=== PATIENT | male | born 1945 | race Caucasian/White ===

== ENCOUNTER 2018-04-23 05:10 | Observation (INO) | payer OTHER ==
--- NOTE | 2018-04-23 05:29 | ED ---
HPI Chest Pain - HPI Summary HPI Summary: This pt is a 72 y/o male presenting to [facility] c/o chest pain. Pt reports for the past 2 days he has had intermittent chest pain on the left side of his chest. He describes a shooting and stabbing pain that lasts for about 3-4 seconds and resolves on its own; this occurs every 30 minutes. Additionally states tightness in his chest intermittently. Pt reports his chest pain radiates to both side of his neck and with deep breathing he has neck pain on the left. Denies radiating pain anywhere else. Denies nausea, vomiting, diaphoresis. His last chemical stress test was 5 or 6 years ago. PMHx includes HTN, afib. Pt is on atenolol, losartan, hydrochlorothiazide, aspirin. Pt is not on anticoagulants. He has been taking his aspirin as directed. The last time he had a syncopal episode with LOC was 3 years ago. Denies syncopal episodes lately. Pt drinks alcohol every day. - History of Current Complaint Chief Complaint: EDChestPainROMI Time Seen by Provider: 04/23/18 05:19 Hx Obtained From: Patient, Family/Forest [employer] Specialist Supervisor Onset/Duration: Started Days Ago - 2, Still Present Timing: Intermittent, Lasting Seconds - 3-4 seconds Initial Severity: Moderate Current Severity: Mild Pain Intensity: 0 Pain Scale Used: 0-10 Numeric Chest Pain Location: Left Anterior Chest Pain Radiates: Yes Chest Pain Radiates To:: Neck - bilateral sides of neck Character: Sharp/Stabbing, Tightness Aggravating Factor(s): Nothing Alleviating Factor(s): Nothing Associated Signs and Symptoms: Positive: Chest Pain. Negative: Shortness of Breath, Fever, Chills, Diaphoresis, Nausea, Vomiting - Allergy/Home Medications Allergies/Adverse Reactions: Allergies Allergy/AdvReac Type Severity Reaction Status Date / Time No Known Allergies Allergy Verified 08/13/14 18:16 Home Medications: Home Medications Aspirin 81 mg CHEW TAB* [Aspirin Low Dose TAB*] 81 mg PO DAILY 04/23/18 [ History Confirmed 04/23/18] Losartan Potassium 25 mg PO DAILY 04/23/18 [History Confirmed 04/23/18] hydroCHLOROthiazide [Hydrochlorothiazide] 12.5 mg PO DAILY 04/23/18 [History Confirmed 04/23/18] PMH/Surg Hx/FS Hx/Imm Hx Endocrine/Hematology History: Denies: Hx Diabetes Cardiovascular History: Reports: Hx Angina, Hx Atrial Fibrillation, Hx Hypertension Denies: Hx Congestive Heart Failure GI History: Reports: Hx Gastroesophageal Reflux Disease Musculoskeletal History: Reports: Hx Back Problems - surgery 25 years ago - Surgical History Surgery Procedure, Year, and Place: back surgery 25 years ago Infectious Disease History: No Infectious Disease History: Denies: Traveled Outside the [place] in Last 30 Days - Family History Known Family History: Positive: Cardiac Disease - Father Family History: Father and mother with colon CA. Mother with cerebral hemorrhage. - Social History Alcohol Use: Daily Alcohol Amount: 3-7/day Substance Use Type: Reports: Marijuana Substance Use Comment - Amount & Last Used: Rarely Smoking Status (MU): Never Smoked Tobacco Review of Systems Negative: Fever, Chills, Skin Diaphoresis Positive: Chest Pain Negative: Shortness Of Breath Negative: Vomiting, Nausea Musculoskeletal: Other - neck pain All Other Systems Reviewed And Are Negative: Yes Physical Exam - Summary Physical Exam Summary: VITAL SIGNS: Reviewed. GENERAL: Patient is a well-developed and nourished male who is lying comfortable in the stretcher. Patient is not in any acute respiratory distress. HEAD AND FACE: No signs of trauma. No ecchymosis, hematomas or skull depressions. No sinus tenderness. EYES: PERRLA, EOMI x 2, No injected conjunctiva, no nystagmus. EARS: Hearing grossly intact. Ear canals and tympanic membranes are within normal limits. MOUTH: Oropharynx within normal limits. NECK: Supple, trachea is midline, no adenopathy, no JVD, no carotid bruit, no c- spine tenderness, neck with full ROM. CHEST: Symmetric, no tenderness at palpation LUNGS: Clear to auscultation bilaterally. No wheezing or crackles. CVS: Irregular bradycardic, S1 and S2 present, no murmurs or gallops appreciated. ABDOMEN: Soft, non-tender. No signs of distention. No rebound no guarding, and no masses palpated. Bowel sounds are normal. EXTREMITIES: FROM in all major joints, no edema, no cyanosis or clubbing. NEURO: Alert and oriented x 3. No acute neurological deficits. Speech is normal and follows commands. SKIN: Dry and warm Triage Information Reviewed: Yes Vital Signs On Initial Exam: Initial Vitals Temp Pulse Resp BP Pulse Ox 98.3 F 54 20 190/90 95 04/23/18 05:15 04/23/18 05:15 04/23/18 05:15 04/23/18 05:15 04/23/18 05:15 Vital Signs Reviewed: Yes Diagnostics - Vital Signs Vital Signs Temp Pulse Resp BP Pulse Ox 04/23/18 05:15 98.3 F 54 20 190/90 95 - Laboratory Result Diagrams: 04/23/18 06:06 04/23/18 06:06 Lab Statement: Any lab studies that have been ordered have been reviewed, and results considered in the medical decision making process. - Radiology Chest XR Xray Interpretation: Positive (See Comments) - cardiomegaly. Bilateral mild venous congestion. Pending official radiology report. Radiology Interpretation Completed By: ED Physician - EKG 05:13 Cardiac Rate: Bradycardia - at 57 bpm EKG Rhythm: Atrial Fibrillation EKG Interpretation: Minimal ST depression in lateral leads. Nonspecific T wave changes. EKG Comparison: No Significant Change - from prior EKG on 08/13/14. Chest Pain Course/Dx - Course Assessment/Plan: Pt is a 72 y/o male, with hx of HTN and afib not on anticoagulants, presents with chest pain. Pt reports for the past 2 days he has had intermittent chest pain on the left side of his chest. He describes a shooting and stabbing pain that lasts for about 3-4 seconds and resolves on its own; this occurs every 30 minutes. Additionally states tightness in his chest intermittently. Pt reports his chest pain radiates to both side of his neck and with deep breathing he has neck pain on the left. Denies radiating pain anywhere else. Denies nausea, vomiting, diaphoresis. In the ED course the pt was given aspirin and nitroglycerin paste. EKG shows atrial fibrillation at 57 bpm. Test results shows WBC of 11, INR of 1.14, total bilirubin of 2.7, BNP of 233. Pt has pauses of 2 seconds on monitor. He is asymptomatic during these pauses. Chest XR is consistent with mild congestive heart failure and pt will be given 20 mg of Lasix. I discussed the case with Dr. Head, hospitalist, who accepted the pt for admission. - Diagnoses Provider Diagnoses: Chest pain, Atrial fibrillation, Congestive heart failure - Provider Notifications Discussed Care Of Patient With: Abdoulaye Head - hospitalist Time Discussed With Above Provider: 06:48 Instructed by Provider To: Admit As Inpatient Discharge - Sign-Out/Discharge Documenting (check all that apply): Patient Departure - Admit to [facility] - Discharge Plan Condition: Stable Disposition: ADMITTED TO [facility] Referrals: Andrae Gaviria MD [Primary Care Provider] - - Attestation Statements Document Initiated by Scribe: Yes Documenting Scribe: Alexandra Dumont Provider For Whom Scribe is Documenting (Include Credential): Rupal Maldonado MD Scribe Attestation: Alexandra Eden, scribed for Rupal Maldonado MD on 04/23/18 at 0652.
[2018-04-23] MEDS ORDERED: Nitroglycerin 2% OINT* 1 GM PAK TOPICAL ONE (05:35)
[2018-04-23] MEDS ORDERED: Aspirin 81 mg CHEW TAB* 81 MG TAB.CHEW PO ONE (05:36)
[2018-04-23 06:21] LABS: ABS Basophils 0.1 10^3/ul (0-0.2); ABS Eosinophils 0 10^3/ul (0-0.6); ABS Lymphocytes 1.3 10^3/ul (1.0-4.8); ABS Monocytes 1.3 10^3/ul (0-0.8); ABS Neutrophils 8.4 10^3/ul (1.5-7.7); ABS Nucleated RBC 0 10^3/ul; Eosinophil % 0.2 % (0-6); Hematocrit 45 % (42-52); Hemoglobin 15.7 g/dl (14.0-18.0); Lymphocyte % 11.5 % (25-47); Mean Corpuscular HGB Conc 35 g/dl (31-36); Mean Corpuscular Hemoglobin 35 pg (27-31); Mean Corpuscular Volume 100 fL (80-94); Mean Platelet Volume 8.1 um3 (7.4-10.4); Nucleated Red Blood Cells % 0.1; Platelet Count 169 10^3/ul (150-450); Red Blood Count 4.49 10^6/ul (4.00-5.40); Red Cell Distribution Width 13 % (10.5-15)
[2018-04-23 06:28] LABS: INR 1.14 (0.77-1.02)
[2018-04-23 06:40] LABS: EGFR Non-African American 100.8 (>60)
[2018-04-23] MEDS ORDERED: Furosemide IV* 10 MG/ML 2 ML VIAL (20 MG) IV ONE (06:46)
--- NOTE | 2018-04-23 07:49 | RAD ---
INDICATION: Chest pain COMPARISON: Chest x-ray August 13, 2014 TECHNIQUE: Single AP portable view of the chest was obtained. FINDINGS: Image quality is compromised due to the relative inferiority of a portable chest x-ray. There is a mild degree of cardiomegaly. The heart and mediastinum otherwise exhibits normal contours. There is mild engorgement of the pulmonary vasculature. The lungs are otherwise grossly clear. Visualized bones are normal for the patient's age. IMPRESSION: In the correct clinical setting chest x-ray findings could be compatible with cardiogenic pulmonary edema. R0
[2018-04-23] MEDS ORDERED: Enoxaparin(*) 40 MG/0.4 ML SYR SUBCUT SCH (08:00)
[2018-04-23] MEDS ORDERED: Potassium Chlor TAB* 10 MEQ TAB.ER PO ONE (08:00)
--- NOTE | 2018-04-23 08:00 | ADMNOTE ---
Subjective Date of Service: 04/23/18 Interval History: ADMISSION HISTORY AND PHYSICAL EXAM: Allergies Allergy/AdvReac Type Severity Reaction Status Date / Time No Known Allergies Allergy Verified 08/13/14 18:16 Home Medications Medication Instructions Recorded Confirmed Type Atenolol [Atenolol-] 25 mg PO DAILY 08/13/14 04/23/18 History Aspirin 81 mg CHEW TAB* [Aspirin 81 mg PO DAILY 04/23/18 04/23/18 History Low Dose TAB*] Losartan Potassium 25 mg PO DAILY 04/23/18 04/23/18 History hydroCHLOROthiazide 12.5 mg PO DAILY 04/23/18 04/23/18 History [Hydrochlorothiazide] HPI According to his , the patient has had intermittent L chest pain for several years. He sometimes grabs his L chest and says "This is the big one." The pains seemed more severe the last 2 days. It woke him at about 4 AM. today. It lasted several hours, off and on, and is still present to a lesser degree. No assoc sx's or radiation. Mldly pleuritic. He states he takes a half of a hydrocodone for his back and also for this pain. Family History: Unchanged from Admission - Colon ca both parents. Cerebral hemorrhage, CAD Social History: Findings - Never smoked. Drank 4 alcoholic drinks yesterday. Lives with his who is his SDM. Past Medical History: Findings - Chronic a fib not on AC. Back surgery, chronic back pain. HTN. Review of Systems - Measurements Intake and Output: Intake and Output Last 24 Hours 04/21/18 04/22/18 04/23/18 04/24/18 06:59 06:59 06:59 06:59 Weight 200 lb 200 lb - Review of Systems Constitutional Symptoms: Negative: Weight Gain, Weight Loss, Weakness, Fatigue, Fever, Night Sweats, Unexplained Falls, Other Dermatology: Positive: Normal HEENT: Positive: Normal Eyes: Positive: Normal Thyroid: Positive: Normal Pulmonary: Positive: Normal Cardiology: Positive: Chest Pain Gastroenterology: Positive: Normal Musculoskeletal: Positive: Low Back Pain Endocrinology: Positive: Normal Hematologic/Lymphatic: Negative: Anemia, Easy Brusing, Hx Leukemia, Hx Lymphoma, Use of Anticoagulant, Use of Antiplatelet Drugs, Other Neurology: Positive: Other - numbnes of plantar feet BL Psychiatry: Positive: Normal Allergic/Immunologic: Negative: Hx Anaphylaxis, Hx Angioedema, Hx Environmental, Hx Seasonal, Athsma, Hx HIV, Immunocompromise, Swollen Glands LymphNodes, Other Objective Active Medications: Aspirin (Aspirin 81 Mg Chew Tab*) 81 mg PO DAILY LEONELA Enoxaparin Sodium (Lovenox(*)) 40 mg SUBCUT Q24H LEONELA Losartan Potassium (Cozaar Tab*) 25 mg PO DAILY LEONELA Non-Formulary Medication (Hydrochlorothiazide [Hydrochlorothiazide]) 12.5 mg PO DAILY LEONELA Potassium Chloride (Klor Con Er Tab*) 20 meq PO DAILY LEONELA Potassium Chloride (Klor Con Er Tab*) 20 meq PO ONCE ONE Stop: 04/23/18 08:01 Vital Signs - 8 hr 04/23/18 04/23/18 04/23/18 05:15 05:29 05:30 Temperature 98.3 F Pulse Rate 54 47 49 Respiratory 20 16 16 Rate Blood Pressure 190/90 174/91 (mmHg) O2 Sat by Pulse 95 96 97 Oximetry 04/23/18 04/23/18 04/23/18 05:59 06:01 06:18 Temperature Pulse Rate 49 Respiratory 17 19 19 Rate Blood Pressure 164/101 152/74 (mmHg) O2 Sat by Pulse 96 Oximetry 04/23/18 04/23/18 06:29 06:45 Temperature Pulse Rate 51 53 Respiratory 32 29 Rate Blood Pressure 150/85 159/86 (mmHg) O2 Sat by Pulse 96 94 Oximetry Oxygen Devices in Use Now: None Appearance: Alert, partly up on ED stretcher. In good spirits. Looks comfortable. Eyes: No Scleral Icterus Ears/Nose/Mouth/Throat: Clear Oropharnyx, Mucous Membranes Moist Neck: NL Appearance and Movements; NL JVP, No Thyroid Enlargement, Masses Respiratory: Symmetrical Chest Expansion and Respiratory Effort, Clear to Auscultation Cardiovascular: NL Sounds; No Murmurs; No JVD, No Edema, - - irreg. 2+ PT pulses BL. Abdominal: NL Sounds; No Tenderness; No Distention, No Hepatosplenomegaly, - Extremities: No Edema, No Clubbing, Cyanosis, - Skin: No Rash or Ulcers, No Nodules or Sclerosis, - Neurological: Alert and Oriented x 3, NL Sensation Result Diagrams: 04/23/18 06:06 04/23/18 06:06 Assess/Plan/Problems-Billing Assessment: - Patient Problems (1) Chest pain Current Visit: No Status: Acute Priority: High Onset Date: 08/13/14 Code (s): R07.9 - CHEST PAIN, UNSPECIFIED SNOMED Code(s): 85042671 Comment: Atypical. Last stess test 2014. Repeat today. Second troponin pending. (2) Elevated brain natriuretic peptide (BNP) level Current Visit: Yes Status: Acute Code(s): R79.89 - OTHER SPECIFIED ABNORMAL FINDINGS OF BLOOD CHEMISTRY SNOMED Code(s): 295881762 Comment: TTE ordered. Pt received 1 dose furosemide 20 mg IV in ED. Potassium ordered. (3) HTN (hypertension) Current Visit: No Status: Acute Priority: High Onset Date: 08/13/14 Code (s): I10 - ESSENTIAL (PRIMARY) HYPERTENSION SNOMED Code(s): 80108645 Comment: Stop atenolol due to bradycardia, continue losartan. (4) Alcohol abuse Current Visit: Yes Status: Acute Code(s): F10.10 - ALCOHOL ABUSE, UNCOMPLICATED SNOMED Code(s): 72206948 Comment: Pt advised to limit alcohol to 2 drinks per day.
[2018-04-23] MEDS ORDERED: Potassium Chlor TAB* 10 MEQ TAB.ER PO SCH (09:00)
[2018-04-23] MEDS ORDERED: Regadenoson* 0.4 MG/5 ML SYRINGE ONE (12:32)
[2018-04-23] MEDS ORDERED: Aminophylline IV* 25 MG/ML 10 ML VIAL ONE (13:30)
--- NOTE | 2018-04-23 14:51 | RAD ---
Edited for charges. Indication: Chest pain. Myocardial perfusion scan was performed utilizing 1 day protocol. Rest myocardial perfusion was performed without intravenous injection of 10.1 mCi of technetium 99 and tetrofosmin. Pharmacological stress was performed and 25.3 mCi of technetium 99m tetrofosmin was injected. Comparison is made with previous exam dated August 14, 2014. There is mild ventriculomegaly. There may be some mild photopenia at the base of the inferior wall which appears to reverse. No other areas of perfusion defect is identified. The ejection fraction at stress is 74%. Evaluation of wall motion demonstrates no focal wall motion abnormality. IMPRESSION: There may be some reversible change at the base of the heart in the inferior wall. Ventriculomegaly is noted. Normal ejection fraction. ASSESSMENT: Low risk Based on imaging criteria from ACC/AHA 2002 Guideline Update for the Management of Patients With Chronic Stable Angina Table 23. Noninvasive Risk Stratification. MTDD
[2018-04-23 15:27] VITALS: BP 158/63
[2018-04-24] MEDS ORDERED: Hydrochlorothiazide TAB* 25 MG PO SCH (09:00)
[2018-04-24] MEDS ORDERED: Aspirin 81 mg CHEW TAB* 81 MG TAB.CHEW PO SCH (09:00)
[2018-04-24] MEDS ORDERED: Losartan TAB* 25 MG PO SCH (09:00)
--- NOTE | 2018-04-24 10:31 | DS ---
CC: Dr. Gaviria DISCHARGE SUMMARY: DATE OF ADMISSION: 04/23/18 DATE OF DISCHARGE: 04/23/18 HISTORY: This 72-year-old man came complaining of chest pain. According to his and the patient , he has had the pain possibly for several years. The pain lasts 15 to 30 seconds. It occurs in dif ferent areas of his chest. It seemed a little more severe in the last 2 days. It woke him at about 4 a.m. It was present off and on for several hours. It was mildly pleuritic. He said he takes a cade lf of hydrocodone for his back pain and also took it for this pain. There were no other associated s ymptoms. He is a sedentary man because of his back pain. According to him and his , he has 4 to 5 alcoholic drinks per day. The patient was admitted to a telemetry unit. He had 2 troponin levels, both of which were within no rmal limits. He underwent a pharmacologic nuclear stress test. Ejection fraction at stress was 74%. There was no mention of attenuation correction being made. There was no focal wall motion abnormali ty. "There may be some mild photopenia at the base of the inferior wall which appears to reverse. N o other areas of perfusion defect is identified." A small questionable area at the base of the wall is more likely due to diaphragmatic attenuation and is probably not of clinical concern. An echocardiogram was ordered but the staff did not get around to doing it. I think the schedule was quite full for echocardiograms this day. He can have this as an outpatient. I think it may be wort h pursuing as his BNP was 233. The clinical significance of this at this time is not clear. I have told him to stop his atenolol. He already took it the morning of admission. In a day or two, he should be at a higher heart rate. The patient has an appointment to see Dr. Gaviria, 04/30/18, for a routine visit. I have told the christa crowley and his that they should talk to Dr. Gaviria about referral to a sampler and test preparer as well as an outpatient echocardiogram. I also told him that he should limit himself to 2 alcoholic drinks a day. FINAL DIAGNOSES: 1. Atypical chest pain. 2. Elevated BNP. 3. Hypertension. 4. Alcohol abuse. MEDICATIONS ON DISCHARGE: 1. Aspirin 81 mg daily. 2. Hydrochlorothiazide 12.5 mg daily. 3. Losartan 25 mg daily. Note that atenolol has been discontinued. CONDITION ON DISCHARGE: Good. DISPOSITION ON DISCHARGE: Home. [id number]/[facility] #: [id number]
== END 2018-04-23 16:21 | disposition home or self-care (01) ==
LOC: ED 05:10 → MEDTELE 07:47
PROVIDERS: ADMIT Internal Medicine; ATTEND Internal Medicine
DX: R07.89 Other chest pain (principal); I10 Essential (primary) hypertension; R79.89 Other specified abnormal findings of blood chemistry; F10.10 Alcohol abuse, uncomplicated; Z79.82 Long term (current) use of aspirin; I48.91 Unspecified atrial fibrillation; M54.5 Low back pain
CPT/HCPCS: 36415; 71045; 78452; 80053; 80320; 83735; 83880; 84484; 85025; 85379; 85610; 85730; 93005; 93017; 96374; 96375; 99284; A9270-GY; A9502; G0378; G0480; J0280; J1650; J1940; J2785

== ENCOUNTER 2018-05-02 12:38 | Emergency (ER) | payer OTHER ==
[2018-05-02 13:02] VITALS: BP 149/90
--- NOTE | 2018-05-02 13:15 | UC ---
Cardiac HPI - HPI Summary HPI Summary: 73yo male patient with PMH of Afib, HTN and chronic atypical chest pain who c/o recurrent left armpit, chest and shoulder pain. patient was hospitalized recently on 04/23/18 and had a cardiac work-up for the pain. Nuclear scan was negative, LVEf estimated to be 73%, with no wall motion abnormalities; patient states the pain comes and goes and is positional and it migrates, has history of the same pain for years. . Patient states his pain is worse when he takes a deep breath. He is currently on losartan and HCTZ to control BP but atenolol was discontinued while he was in the hospital due to fear of CHF. He was restarted as an outpatient by PCP 6 days ago. - History of Current Complaint Chief Complaint: UCGeneralIllness Stated Complaint: CHEST/SHOULDER PAIN Time Seen by Provider: 05/02/18 13:06 Hx Obtained From: Patient Onset/Duration: Gradual Onset, Lasting Weeks Initial Severity: Mild Current Severity: Mild Pain Intensity: 2 Chest Pain Location: Diffuse, Left Lateral - Risk Factors Pulmonary Embolism Risk Factors: Negative Cardiac Risk Factors: Hypertension Atrial Fibrillation: Hypertension TAD Risk Factors: Hypertension AMI/ACS Risk Factors: Hypertension - Allergy/Home Medications Allergies/Adverse Reactions: Allergies Allergy/AdvReac Type Severity Reaction Status Date / Time No Known Allergies Allergy Verified 05/02/18 12:48 Home Medications: Home Medications Atenolol 1 tab PO DAILY 05/02/18 [History Confirmed 05/02/18] Ibuprofen 400 mg PO DAILY PRN 05/02/18 [History Confirmed 05/02/18] PMH/Surg Hx/FS Hx/Imm Hx Cardiovascular History: Hypertension, Atrial Fibrillation - Surgical History Surgical History: Yes Surgery Procedure, Year, and Place: back surgery 25 years ago - Family History Known Family History: Positive: Cardiac Disease - Father Family History: Father and mother with colon CA. Mother with cerebral hemorrhage. - Social History Alcohol Use: Daily Alcohol Amount: beer, vodka- 4 drinks daily Substance Use Type: None Substance Use Comment - Amount & Last Used: Rarely Smoking Status (MU): Never Smoked Tobacco Have You Smoked in the Last Year: No - Immunization History Most Recent Influenza Vaccination: 2009 Most Recent Tetanus Shot: unknown Most Recent Pneumonia Vaccination: never had Review of Systems Respiratory: Shortness Of Breath Cardiovascular: Chest Pain Musculoskeletal: Arthralgia, Myalgia All Other Systems Reviewed And Are Negative: Yes Physical Exam Triage Information Reviewed: Yes Appearance: Well-Appearing, No Pain Distress, Well-Nourished Vital Signs: Initial Vital Signs Temp 99.9 F 05/02/18 12:52 Pulse 63 05/02/18 12:52 Resp 20 05/02/18 12:52 BP 149/90 05/02/18 12:52 Pulse Ox 98 05/02/18 12:52 Vital Signs Reviewed: Yes ENT: Positive: Hearing grossly normal, Pharynx normal Neck: Positive: Supple, Nontender, No Lymphadenopathy Respiratory: Positive: Chest non-tender, Lungs clear, Normal breath sounds Cardiovascular: Positive: RRR, No Murmur, Pulses Normal, Brisk Capillary Refill Abdomen Description: Positive: Nontender, No Organomegaly, Soft Bowel Sounds: Positive: Present Musculoskeletal: Positive: Strength Intact, ROM Intact, No Edema Neurological: Positive: Alert, Muscle Tone Normal - Assessment/Plan Course Of Treatment: chest xray shows CMG, small left pleural effusion and trace right pleural effusion, no interval changes from 04-23-18. Ribcage series negative for fracture or lytic changes. Diagnosis of Costochondritis , start ibuprofen as needed. Patient has CHF and deconditioning, recommended to start cardiac rehabilition program and f/u with PCP and referral to cardiology for 2D echocardiogram. - Clinical Impression Provider Diagnoses: costochondritis. HTN. Afib. CHF Discharge - Sign-Out/Discharge Documenting (check all that apply): Patient Departure All imaging exams completed and their final reports reviewed: Yes - Discharge Plan Condition: Stable Disposition: HOME Patient Education Materials: Costochondritis (ED) Referrals: Andrae Gaviria MD [Primary Care Provider] - Shea Hay MD [Medical Doctor] - - Billing Disposition and Condition Condition: STABLE Disposition: Home
--- NOTE | 2018-05-02 14:21 | RAD ---
INDICATION: Chest pain rib cage left side. COMPARISON: Comparison is made with a prior chest x-ray study from April 23, 2018. TECHNIQUE: 4 views of the left ribs and dual-energy PA views of the chest were obtained. FINDINGS: No fracture or significant focal osseous abnormality is seen. The heart appears mildly enlarged and unchanged. There is a trace right pleural effusion and a small left pleural effusion which appear new. No pneumothorax is seen. The lungs appear grossly clear. IMPRESSION: 1. NEW BILATERAL PLEURAL EFFUSIONS. 2. NO EVIDENCE FOR FRACTURE.
== END 2018-05-02 14:47 | disposition home or self-care (01) ==
LOC: UCEAST 12:38
DX: M94.0 Chondrocostal junction syndrome [Tietze] (principal); I10 Essential (primary) hypertension; I48.91 Unspecified atrial fibrillation; I50.9 Heart failure, unspecified; Z79.899 Other long term (current) drug therapy
CPT/HCPCS: 93005; 99212; G0463

== ENCOUNTER 2020-09-12 09:34 | Inpatient (IN) ==
[2020-09-12] MEDS ORDERED: NS 0.9% 1000 ml BAG 1,000 ML IV ONE (09:41)
[2020-09-12 09:58] LABS: ABS Lymphocytes 1.1 10^3/ul (1.0-4.8); ABS Monocytes 0.8 10^3/ul (0-0.8); ABS Neutrophils 6.4 10^3/ul (1.5-7.7); Eosinophil % 0.6 %; Hematocrit 39 % (42-52); Hemoglobin 13.2 g/dL (14.0-18.0); Lymphocyte % 13.4 %; Mean Corpuscular HGB Conc 34 g/dL (31-36); Mean Corpuscular Hemoglobin 34 pg (27-31); Mean Corpuscular Volume 100 fL (80-94); Platelet Count 170 10^3/uL (150-450); Red Blood Count 3.88 10^6 /uL (4.18-5.48); Red Cell Distribution Width 13 % (10-15); White Blood Count 8.4 10^3/uL (3.5-10.8)
[2020-09-12 10:15] LABS: ALT 22 U/L (7-52); AST 26 U/L (13-39); Albumin 4.2 g/dL (3.2-5.2); Albumin/Globulin Ratio 1.7 (1-3); Alkaline Phosphatase 68 U/L (34-104); Anion Gap 8 mmol/L (2-11); BUN/Creatinine Ratio 12.9 (8-20); Blood Urea Nitrogen 11 mg/dL (6-24); CO2 Carbon Dioxide 29 mmol/L (22-32); Calcium 9.6 mg/dL (8.6-10.3); Chloride 100 mmol/L (101-111); EGFR African American 106.3 (>60); EGFR Non-African American 87.9 (>60); Globulin 2.5 g/dL (2-4); Glucose 121 mg/dL (70-100); Potassium 3.3 mmol/L (3.5-5.0); Sodium 137 mmol/L (135-145); Total Protein 6.7 g/dL (6.4-8.9)
[2020-09-12 10:18] LABS: INR 1.23 (0.82-1.09)
[2020-09-12] MEDS ORDERED: PEG 3000 GI LAVAGE 1 GALLON PO ONE (10:50)
[2020-09-12] MEDS ORDERED: Potassium Chlor 20 meq TAB.ER PO ONE (10:51)
[2020-09-12 11:08] LABS: Troponin I 0.03 ng/mL (<0.03)
[2020-09-12 11:40] LABS: Indirect Bilirubin 1.2 mg/dL (0.3-1.0)
[2020-09-12] MEDS ORDERED: Ondansetron 4 mg VIAL 2 MG/ML 2 ml VIAL ONE (12:01)
[2020-09-12] MEDS ORDERED: Ondansetron 4 mg VIAL 2 MG/ML 2 ml VIAL IV ONE (12:05)
[2020-09-12] MEDS ORDERED: Ondansetron 4 mg VIAL 2 MG/ML 2 ml VIAL IV PRN (12:16)
[2020-09-12 12:18] LABS: Hematocrit 32 % (42-52); Hemoglobin 11.1 g/dL (14.0-18.0); Mean Corpuscular HGB Conc 34 g/dL (31-36); Mean Corpuscular Hemoglobin 34 pg (27-31); Mean Corpuscular Volume 100 fL (80-94); Mean Platelet Volume 9.2 fL (7.4-10.4); Platelet Count 167 10^3/uL (150-450); Red Blood Count 3.23 10^6 /uL (4.18-5.48); Red Cell Distribution Width 13 % (10-15); White Blood Count 9.9 10^3/uL (3.5-10.8)
[2020-09-12 12:30] LABS: Magnesium 1.7 mg/dL (1.9-2.7)
[2020-09-12] MEDS ORDERED: NS 0.9% 1000 ml BAG 1,000 ML IV SCH (12:30)
[2020-09-12] MEDS ORDERED: Lorazepam PYXIS KEY PRN (12:37)
[2020-09-12] MEDS ORDERED: Magnesium Sulfate 2 gm BAG 2 GM/50 ML BAG IVPB ONE (12:43)
[2020-09-12 12:47] LABS: Troponin I 0.03 ng/mL (<0.03)
[2020-09-12 12:48] LABS: Anion Gap 6 mmol/L (2-11); CO2 Carbon Dioxide 27 mmol/L (22-32); Calcium 8.6 mg/dL (8.6-10.3); Chloride 105 mmol/L (101-111); Potassium 3.6 mmol/L (3.5-5.0); Sodium 138 mmol/L (135-145)
[2020-09-12 12:54] LABS: BUN/Creatinine Ratio 14.7 (8-20); Blood Urea Nitrogen 11 mg/dL (6-24); EGFR African American 122.8 (>60); EGFR Non-African American 101.5 (>60); Glucose 123 mg/dL (70-100)
[2020-09-12] MEDS: KCL 20 MEQ/100 ML IVPREMIX 20 MEQ/100 ML BAG IV SCH ×2 (12:57→15:10)
[2020-09-12] MEDS ORDERED: LORazepam 2 mg VIAL 1 ml IV PUSH SCH (13:00)
[2020-09-12] MEDS ORDERED: Lactated Ringers 1000 ml BAG 1,000 ML IV SCH (13:00)
[2020-09-12] MEDS ORDERED: Atropine 0.1 MG/ML 10 ml SYR (1 mg) ONE (13:41)
[2020-09-12] MEDS ORDERED: Norepinephrine 16MCG/ML IVPRE 4,000 MCG/250 ML BAG IV ONE (14:35)
[2020-09-12] MEDS ORDERED: fentaNYL 100 mcg/2 ml 50 MCG/ML VIAL ONE (14:58)
[2020-09-12] MEDS ORDERED: Midazolam 10 mg/10 ml VIAL 1 mg/ml 10 ml VIAL (10 mg) ONE (14:58)
[2020-09-12] MEDS ORDERED: Norepinephrine 16MCG/ML IVPRE 4,000 MCG/250 ML BAG IV SCH ×2 (15:00→17:38)
[2020-09-12 15:23] LABS: Magnesium 1.6 mg/dL (1.9-2.7); Phosphorus 3.6 mg/dL (2.5-5.0)
[2020-09-12 15:24] LABS: ABS Lymphocytes 1.1 10^3/ul (1.0-4.8); ABS Monocytes 0.5 10^3/ul (0-0.8); ABS Neutrophils 6.3 10^3/ul (1.5-7.7); Eosinophil % 0.3 %; Hematocrit 26 % (42-52); Hemoglobin 9.2 g/dL (14.0-18.0); Lymphocyte % 14.2 %; Mean Corpuscular HGB Conc 35 g/dL (31-36); Mean Corpuscular Hemoglobin 35 pg (27-31); Mean Corpuscular Volume 101 fL (80-94); Mean Platelet Volume 9.9 fL (7.4-10.4); Platelet Count 107 10^3/uL (150-450); Red Blood Count 2.62 10^6 /uL (4.18-5.48); Red Cell Distribution Width 13 % (10-15)
[2020-09-12 19:16] LABS: ABS Basophils 0.1 10^3/ul (0-0.2); ABS Lymphocytes 1.1 10^3/ul (1.0-4.8); ABS Monocytes 0.5 10^3/ul (0-0.8); ABS Neutrophils 8.1 10^3/ul (1.5-7.7); Eosinophil % 0.1 %; Hematocrit 26 % (42-52); Lymphocyte % 10.9 %; Mean Corpuscular HGB Conc 34 g/dL (31-36); Mean Corpuscular Hemoglobin 33 pg (27-31); Mean Corpuscular Volume 95 fL (80-94); Mean Platelet Volume 8.9 fL (7.4-10.4); Platelet Count 151 10^3/uL (150-450); Red Blood Count 2.75 10^6 /uL (4.18-5.48); Red Cell Distribution Width 15 % (10-15); White Blood Count 9.7 10^3/uL (3.5-10.8)
[2020-09-12 21:22] VITALS: BP 100/52
[2020-09-18 00:22] LABS: IgG Immunoblot Negative (Negative); IgM Immunoblot Negative (Negative)
== END 2020-09-12 21:00 | disposition short-term general hospital (02) | DRG 244 ==
LOC: ED 09:34 → ICU 12:17
PROVIDERS: ADMIT Internal Medicine; ATTEND Internal Medicine

== ENCOUNTER 2021-08-14 01:17 | Inpatient (IN) ==
[2021-08-14] MEDS ORDERED: HYDROcodone/ACETAMIN 5/325 mg TAB PO ONE ×2 (02:09→03:10)
[2021-08-14 03:52] LABS: Hematocrit 40 % (42-52); Mean Corpuscular HGB Conc 35 g/dL (31-36); Mean Corpuscular Hemoglobin 33 pg (27-31); Mean Corpuscular Volume 96 fL (80-94); Platelet Count 183 10^3/uL (150-450); Red Blood Count 4.22 10^6 /uL (4.18-5.48); Red Cell Distribution Width 13 % (10-15); White Blood Count 11.5 10^3/uL (3.5-10.8)
[2021-08-14 04:06] LABS: Calcium 9.7 mg/dL (8.6-10.3); Potassium 3.5 mmol/L (3.5-5.0); eGFR CKD-EPI 105.1 (>60)
[2021-08-14 04:19] LABS: Magnesium 1.7 mg/dL (1.9-2.7)
[2021-08-14] MEDS ORDERED: Iodixanol (CONTRAST) 320 MG/ML 100 ML SDV IV ONE (04:23)
[2021-08-14 04:27] LABS: INR 1.31 (0.86-1.15)
[2021-08-14] MEDS ORDERED: Magnesium Sulfate IV 3 GM in NS 0.9% 100 ml BAG 100 ML IVPB ONE (04:35)
[2021-08-14] MEDS ORDERED: LORazepam 2 mg VIAL 1 ml IV PUSH PRN (04:50)
[2021-08-14] MEDS ORDERED: Lorazepam PYXIS KEY PRN (04:50)
[2021-08-14] MEDS ORDERED: Magnesium Sulfate 1 GM IV 1 GM/100 ML BAG IV ONE (05:00)
[2021-08-14] MEDS ORDERED: Magnesium Sulfate 2 GM IV (Premix) IVPB ONE (05:00)
[2021-08-14] MEDS ORDERED: Thiamine 100 MG/ML 2 ml VIAL 100 MG, Folic Acid IV 1 MG, Multiple Vitamin IV ADULT 10 M... IV ONE (05:15)
[2021-08-14 06:03] LABS: ABS Basophils 0.1 10^3/ul (0-0.2); ABS Eosinophils 0.2 10^3/ul (0-0.6); ABS Lymphocytes 0.5 10^3/ul (1.0-4.8); ABS Monocytes 0.6 10^3/ul (0-0.8); ABS Neutrophils 10.1 10^3/ul (1.5-7.7); Eosinophil % 1.6 %; Lymphocyte % 4.4 %; RBC Morphology Normal (Normal)
[2021-08-14 06:21] LABS: Erythrocyte Sed Rate 30 mm/Hr (0-19)
[2021-08-14 06:47] LABS: TSH Ultra Thyroid Stim Horm 4.55 mcIU/mL (0.34-5.60)
[2021-08-14 08:09] LABS: Albumin 3.9 g/dL (3.2-5.2); Total Bilirubin 1.9 mg/dL (0.2-1.0)
[2021-08-14 08:28] LABS: Direct Bilirubin 0.6 mg/dL (0.03-0.18); Indirect Bilirubin 1.3 mg/dL (0.3-1.0)
[2021-08-14 08:34] LABS: Albumin/Globulin Ratio 1.3 (1-3); C Reactive Protein 22.94 mg/L (<8.01); Total Protein 6.9 g/dL (6.4-8.9)
[2021-08-14] MEDS ORDERED: Senna/Docusate 8.6/50 mg (NF) TAB PO SCH (09:00)
[2021-08-14] MEDS: CMCS:Alfuzosin ER 10 mg TAB.ER (NF) 10 MG TAB.ER PO SCH (09:31)
[2021-08-14] MEDS: Docusate LIQ 100 MG/10 ML UDC PO SCH (09:39)
[2021-08-14] MEDS: Senna TAB 8.6 mg TAB PO SCH (09:39)
[2021-08-14] MEDS ORDERED: Bupivacaine 0.5% W/EPI SDV 10 ML VIAL INJ ONE (12:15)
[2021-08-14] MEDS ORDERED: hydrALAZINE 20 mg/ml 1 ML Vial IV IV SLOW PU ONE (14:59)
[2021-08-14 16:09] LABS: Urine Appearance Clear; Urine Bilirubin Negative (Negative); Urine Blood Negative (Negative); Urine Color Amber; Urine Glucose Negative (Negative); Urine Ketones Negative (Negative); Urine Nitrite Negative (Negative); Urine Protein 1+(30 mg/dL) (Negative); Urine Specific Gravity 1.032 (1.002-1.030); Urine Urobilinogen Positive (Negative)
[2021-08-14 16:13] LABS: Urine Bacteria Absent (Absent); Urine Red Blood Cell Trace(0-2/hpf) (Absent); Urine Squamous Epithelial Cell Present (Absent); Urine White Blood Cell Trace(0-5/hpf) (Absent)
[2021-08-14] MEDS ORDERED: Naloxone Nasal Spray 4 MG/0.1 ML NASAL.SPR INTRANASAL PRN (17:22)
[2021-08-14] MEDS: Heparin 5000 UNITS/ML 1 mL VIAL SUBCUT SCH (18:01)
[2021-08-15] MEDS: Heparin 5000 UNITS/ML 1 mL VIAL SUBCUT SCH ×2 (06:07→13:37)
[2021-08-15 06:54] LABS: Hematocrit 38 % (42-52); Hemoglobin 13.3 g/dL (14.0-18.0); Mean Corpuscular HGB Conc 35 g/dL (31-36); Mean Corpuscular Hemoglobin 34 pg (27-31); Mean Corpuscular Volume 97 fL (80-94); Mean Platelet Volume 8.4 fL (7.4-10.4); Platelet Count 182 10^3/uL (150-450); Red Blood Count 3.94 10^6 /uL (4.18-5.48); Red Cell Distribution Width 14 % (10-15); White Blood Count 10.2 10^3/uL (3.5-10.8)
[2021-08-15 07:08] LABS: Calcium 9.3 mg/dL (8.6-10.3); Magnesium 2.1 mg/dL (1.9-2.7); Potassium 3.9 mmol/L (3.5-5.0); eGFR CKD-EPI 99.5 (>60)
[2021-08-15] MEDS: Docusate LIQ 100 MG/10 ML UDC PO SCH (08:43)
[2021-08-15] MEDS: Senna TAB 8.6 mg TAB PO SCH (08:44)
[2021-08-15] MEDS: CMCS:Alfuzosin ER 10 mg TAB.ER (NF) 10 MG TAB.ER PO SCH (08:44)
[2021-08-15] MEDS ORDERED: Multivitamins/Minerals TAB PO SCH (09:00)
[2021-08-15 16:14] VITALS: BP 129/70
== END 2021-08-15 18:45 | disposition short-term general hospital (02) | DRG 340 ==
LOC: ED 01:17 → SUATTDRO 04:35 → EDHOLD 04:35 → SSU 13:22
PROVIDERS: ADMIT Internal Medicine; ATTEND Student in an Organized Health Care Education/Training Program

== ENCOUNTER 2021-09-18 12:39 | Inpatient (IN) ==
[2021-09-18 15:18] LABS: ABS Eosinophils 0.9 10^3/ul (0-0.6); ABS Lymphocytes 0.9 10^3/ul (1.0-4.8); ABS Monocytes 0.9 10^3/ul (0-0.8); ABS Neutrophils 12.1 10^3/ul (1.5-7.7); Hematocrit 32 % (42-52); Lymphocyte % 6.4 %; Mean Corpuscular HGB Conc 34 g/dL (31-36); Mean Corpuscular Hemoglobin 32 pg (27-31); Mean Corpuscular Volume 92 fL (80-94); Mean Platelet Volume 8.4 fL (7.4-10.4); Platelet Count 233 10^3/uL (150-450); Red Blood Count 3.48 10^6 /uL (4.18-5.48); Red Cell Distribution Width 14 % (10-15); White Blood Count 14.9 10^3/uL (3.5-10.8)
[2021-09-18 15:26] LABS: INR 1.17 (0.86-1.15)
[2021-09-18 15:42] LABS: Potassium 4.2 mmol/L (3.5-5.0)
[2021-09-18 15:43] LABS: Albumin 3.7 g/dL (3.2-5.2); Albumin/Globulin Ratio 1.2 (1-3); Calcium 11.6 mg/dL (8.6-10.3); Globulin 3.1 g/dL (2-4); Magnesium 2.1 mg/dL (1.9-2.7); Total Bilirubin 1.5 mg/dL (0.2-1.0); Total Protein 6.8 g/dL (6.4-8.9); eGFR CKD-EPI 94.3 (>60)
[2021-09-18 16:39] LABS: High Sensitivity Troponin 1 Hr 15 pg/mL (<20)
[2021-09-18 17:32] LABS: Urine Appearance Clear; Urine Bilirubin Negative (Negative); Urine Blood Negative (Negative); Urine Color Amber; Urine Glucose Negative (Negative); Urine Ketones Negative (Negative); Urine Nitrite Negative (Negative); Urine Protein Negative (Negative); Urine Specific Gravity 1.017 (1.002-1.030); Urine Urobilinogen Negative (Negative)
[2021-09-18] MEDS ORDERED: Ondansetron 4 mg VIAL 2 MG/ML 2 ml VIAL IV PRN (19:26)
[2021-09-18] MEDS: Enoxaparin 40 MG/0.4 ML SYR SUBCUT SCH (23:22)
[2021-09-19] MEDS ORDERED: Thiamine 100 MG/ML 2 ml VIAL (200 mg) IM ONE (00:33)
[2021-09-19] MEDS ORDERED: LORazepam 2 mg VIAL 1 ml IV PUSH SCH (01:00)
[2021-09-19 05:33] LABS: ABS Eosinophils 0.8 10^3/ul (0-0.6); ABS Lymphocytes 1.2 10^3/ul (1.0-4.8); ABS Neutrophils 11.3 10^3/ul (1.5-7.7); Eosinophil % 5.6 %; Hematocrit 33 % (42-52); Hemoglobin 11.1 g/dL (14.0-18.0); Lymphocyte % 8.2 %; Magnesium 1.9 mg/dL (1.9-2.7); Mean Corpuscular HGB Conc 34 g/dL (31-36); Mean Corpuscular Hemoglobin 32 pg (27-31); Mean Corpuscular Volume 93 fL (80-94); Mean Platelet Volume 9.4 fL (7.4-10.4); Platelet Count 179 10^3/uL (150-450); Potassium 4.2 mmol/L (3.5-5.0); Red Blood Count 3.49 10^6 /uL (4.18-5.48); Red Cell Distribution Width 13 % (10-15); White Blood Count 14.3 10^3/uL (3.5-10.8)
[2021-09-19 05:39] LABS: eGFR CKD-EPI 95.9 (>60)
[2021-09-19] MEDS: Multivitamins/Minerals TAB PO SCH (10:14)
[2021-09-19] MEDS: Enoxaparin 40 MG/0.4 ML SYR SUBCUT SCH (17:58)
[2021-09-20 08:25] LABS: Hematocrit 30 % (42-52); Hemoglobin 10.4 g/dL (14.0-18.0); Mean Corpuscular HGB Conc 35 g/dL (31-36); Mean Corpuscular Hemoglobin 32 pg (27-31); Mean Corpuscular Volume 92 fL (80-94); Mean Platelet Volume 8.3 fL (7.4-10.4); Platelet Count 217 10^3/uL (150-450); Red Blood Count 3.25 10^6 /uL (4.18-5.48); Red Cell Distribution Width 14 % (10-15); White Blood Count 13.7 10^3/uL (3.5-10.8)
[2021-09-20] MEDS: Multivitamins/Minerals TAB PO SCH (08:41)
[2021-09-20 08:57] LABS: ABS Eosinophils 0.8 10^3/ul (0-0.6); ABS Lymphocytes 1.1 10^3/ul (1.0-4.8); ABS Neutrophils 10.7 10^3/ul (1.5-7.7); Lymphocyte % 8.1 %; RBC Morphology Normal (Normal)
[2021-09-20 09:00] LABS: Calcium 10.8 mg/dL (8.6-10.3); Potassium 4.1 mmol/L (3.5-5.0); eGFR CKD-EPI 93.9 (>60)
[2021-09-20] MEDS ORDERED: LORazepam 2 mg VIAL 1 ml IV PUSH PRN (15:40)
[2021-09-20] MEDS ORDERED: Lorazepam PYXIS KEY PRN (15:45)
[2021-09-20] MEDS ORDERED: Morphine 4 MG/ML VIAL (1 ml) IV PRN (16:00)
[2021-09-21] MEDS: Morphine 4 MG/ML VIAL (1 ml) IV PRN ×2 (08:22→13:50)
[2021-09-21] MEDS: Multivitamins/Minerals TAB PO SCH (08:28)
[2021-09-21] MEDS: Polyethylene Glycol 3350 17 GM PACKET PO PRN (08:28)
[2021-09-22] MEDS: Morphine 4 MG/ML VIAL (1 ml) IV PRN ×2 (08:38→20:47)
[2021-09-22] MEDS: Polyethylene Glycol 3350 17 GM PACKET PO PRN (08:38)
[2021-09-22] MEDS: Multivitamins/Minerals TAB PO SCH (08:39)
[2021-09-22] MEDS ORDERED: Magnesium Hydroxide LIQ 30 ML UDC PO ONE (14:36)
[2021-09-22] MEDS ORDERED: Senna TAB 8.6 mg TAB PO ONE (14:36)
[2021-09-22] MEDS ORDERED: Magnesium Hydroxide LIQ 30 ML UDC PO PRN (14:37)
[2021-09-23 03:12] VITALS: BP 102/55
[2021-09-23] MEDS: Morphine 4 MG/ML VIAL (1 ml) IV PRN ×3 (09:45→23:00)
[2021-09-23] MEDS: Multivitamins/Minerals TAB PO SCH (09:54)
[2021-09-23 18:50] LABS: Rapid COVID-19 Molecular Undetected (Undetected)
== END 2021-09-24 10:35 | disposition hospice, home (50) | DRG 136 ==
LOC: ED 12:39 → SUATTDRO 17:44 → EDHOLD 17:44 → MED 20:35
PROVIDERS: ADMIT Internal Medicine; ATTEND Internal Medicine